=== PATIENT | female | born 1995 | race Caucasian/White ===

== ENCOUNTER 2017-05-03 19:45 | Emergency (ER) | payer SELFPAY ==
[2017-05-03 20:03] VITALS: BP 128/85; PULSE 91; RESP 20; TEMP 98.3; O2SAT 98
[2017-05-03] MEDS ORDERED: Dexamethasone 4 mg/1 ml IM STA (20:45)
--- NOTE | 2017-05-03 20:46 | C.PDOC ---
History Of Present Illness 22 yr old female presents to the ER stating while walking outside last night she slipped on ice, landing on her back and neck. Patient denies head injury, vision changes, chest pain, SOB, nausea, vomiting, abdominal pain, weakness or numbness. Time Seen by Provider: 05/03/17 20:04 Chief Complaint (Nursing): Back Pain History Per: Patient History/Exam Limitations: no limitations Onset/Duration Of Symptoms: Sudden Onset (last night) Current Symptoms Are (Timing): Still Present Past Medical History Reviewed: Historical Data, Nursing Documentation, Vital Signs Vital Signs: Last Vital Signs Temp 98.3 F 05/03/17 20:00 Pulse 91 H 05/03/17 20:00 Resp 20 05/03/17 20:00 BP 128/85 05/03/17 20:00 Pulse Ox 98 05/03/17 22:44 Family History: States: No Known Family Hx - Social History Hx Alcohol Use: No Hx Substance Use: No - Immunization History Hx Tetanus Toxoid Vaccination: No Hx Influenza Vaccination: No Hx Pneumococcal Vaccination: No Review Of Systems Except As Marked, All Systems Reviewed And Found Negative. Eyes: Negative for: Vision Change Cardiovascular: Negative for: Chest Pain Respiratory: Negative for: Shortness of Breath Gastrointestinal: Negative for: Nausea, Vomiting, Abdominal Pain Neurological: Negative for: Weakness, Numbness Physical Exam - Physical Exam Appears: Non-toxic, No Acute Distress Skin: Warm, Dry, No Rash Head: Atraumatic, Normacephalic Eye(s): bilateral: Normal Inspection, PERRL, EOMI Oral Mucosa: Moist Neck: Decreased ROM (secondary to pain), No Midline Cervical Tenderness, Paracervical Tenderness, Supple Chest: Symmetrical, No Tenderness, No Ecchymosis, No Subcutaneous Emphysema Cardiovascular: Rhythm Regular, No Friction Rub, No Murmur Respiratory: Normal Breath Sounds, No Rales, No Rhonchi, No Stridor, No Wheezing Gastrointestinal/Abdominal: Normal Exam, Soft, No Tenderness, No Guarding, No Rebound Back: No CVA Tenderness, No Vertebral Tenderness, Muscle Spasm, Other ((+) bilateral paralumbar tenderness) Extremity: Normal ROM, No Swelling Neurological/Psych: Oriented x3, Normal Speech, Normal Motor, Normal Sensation Gait: Steady ED Course And Treatment O2 Sat by Pulse Oximetry: 98 (RA) Pulse Ox Interpretation: Normal - Other Rad X-Ray - Cervical Spine X-Ray: Interpreted by Me, Viewed By Me Interpretation: (+) Muscle spasming. No fracture or dislocation Medical Decision Making Medical Decision Making: PLAN: * X-Ray - Cervical Spine * Valium PO * Decadron IM * Toradol IM On re-exam, the patient reports improvement of symptoms. Lungs are CTA, heart is RRR, abdomen is soft, non-tender and the patient is tolerating PO well. Ambulatory in the ED with steady gait. Follow up with the medical doctor/clinic within 1-2 days. Return if worsened. Disposition - Disposition Referrals: [facility] at [facility] [Outside] Disposition: HOME/ ROUTINE Disposition Time: 22:40 Condition: GOOD Additional Instructions: Follow up with the medical doctor/clinic within 1-2 days. Return if worsened. Prescriptions: Cyclobenzaprine [Cyclobenzaprine HCl] 10 mg PO BID #14 tab Naproxen [Naprosyn] 500 mg PO BID #20 tab Instructions: Cervical Strain (GEN) Forms: [facility] (Macedonian), Work Excuse - Clinical Impression Clinical Impression: Low back strain, Cervical strain - PA / TUGGER OPERATOR / Resident Statement MD/DO has reviewed & agrees with the documentation as recorded. - Scribe Statement The provider has reviewed the documentation as recorded by the Scribe Cassandra Manley All medical record entries made by the Raymundoibraina were at my direction and personally dictated by me. I have reviewed the chart and agree that the record accurately reflects my personal performance of the history, physical exam, medical decision making, and the department course for this patient. I have also personally directed, reviewed, and agree with the discharge instructions and disposition.
[2017-05-03] MEDS ORDERED: Dexamethasone 4 mg/1 ml ONE (20:55)
--- NOTE | 2017-05-04 08:51 | RAD ---
PROCEDURE: Cervical Spine Radiographs. HISTORY: Pain. COMPARISON: None. FINDINGS: BONES: Straightening of the normal cervical lordosis. No fracture. Dens Intact. DISC SPACES: Normal. SOFT TISSUES: Normal. No prevertebral soft tissue swelling. OTHER FINDINGS: None. IMPRESSION: Straightening of the normal cervical lordosis consistent with muscle spasm and/or patient positioning. No fracture
== END 2017-05-03 22:51 | disposition home or self-care (01) ==
LOC: C.ER 19:45
DX: S16.1XXA Strain of muscle, fascia and tendon at neck level, initial encounter (principal); S39.012A Strain of muscle, fascia and tendon of lower back, initial encounter; W00.0XXA Fall on same level due to ice and snow, initial encounter; Y92.89 Other specified places as the place of occurrence of the external cause
CPT/HCPCS: 72040; 96372; 99283; J1100; J1885